=== PATIENT | male | born 1945 | race Caucasian/White ===

== ENCOUNTER 2020-09-16 15:13 | Inpatient (IN) ==
[2020-09-16] MEDS ORDERED: Isovue-370 500 ML BOTTLE IVP ONE (16:00)
[2020-09-16] MEDS ORDERED: methylPREDNISolone 125 MG/2 ML VIAL IVP ONE ×2 (16:01→18:18)
[2020-09-16] MEDS ORDERED: Famotidine 20 MG/2 ML VIAL IVP ONE ×2 (16:01→18:18)
[2020-09-16 18:27] LABS: Hemoglobin 8.1 g/dL (12.9-16.9); Mean Platelet Volume 9.1 fL (9.4-12.4); Red Cell Distribution Width 15.9 % (11.5-14.5)
[2020-09-16 18:28] LABS: Basophils # 0.1 K/mcL (0.0-0.2); Basophils % 1.1 %; Eosinophils # 0.1 K/mcL (0.0-0.6); Eosinophils % 0.9 %; Hematocrit 27.8 % (37.5-50.1); Immature Granulocytes % 0.3 % (0-4); Lymphocytes % 13.7 %; Mean Corpuscular HGB Conc 29.1 g/dL (31.6-35.5); Mean Corpuscular Hemoglobin 27.6 pg (28.0-33.3); Mean Corpuscular Volume 94.6 fL (83.0-100.0); Monocytes # 0.8 K/mcL (0.0-1.3); Monocytes % 10.8 %; Neutrophils # 5.6 K/mcL (1.6-8.9); Platelet Count 507 K/mcL (140-400); Red Blood Count 2.94 M/mcL (4.19-5.50); Segmented Neutrophils % 73.2 %; White Blood Count 7.6 K/mcL (4.3-11.1)
[2020-09-16 18:29] LABS: INR 1.8
[2020-09-16 18:31] LABS: Activated Partial Thrombo Time 35.3 Seconds (26.0-36.0)
[2020-09-16 18:46] LABS: BUN/Creatinine Ratio 28 (6-26); Blood Urea Nitrogen 15 mg/dL (8-23); Calcium 7.5 mg/dL (8.6-10.3); Carbon Dioxide 33 mEq/L (23-29); Chloride 101 mEq/L (98-107); Glucose 107 mg/dL (70-105); Osmolality,Calculated 289 (280-300); Sodium 139 mEq/L (136-145); Troponin I < 0.03 ng/mL (< 0.04); eGFR For African Americans > 60 (> 60); eGFR For Non-African Americans > 60 (> 60)
[2020-09-16 18:52] LABS: Platelet Estimate Increased (Normal)
[2020-09-16 18:53] LABS: Hypochromasia Present (Not Present)
[2020-09-16] MEDS ORDERED: Naloxone 0.4 MG/ML INJ IVP PRN (20:09)
[2020-09-16] MEDS ORDERED: Ondansetron 4 MG/2 ML VIAL IVP PRN (20:45)
[2020-09-16] MEDS ORDERED: Acetaminophen 325 MG TABLET PO PRN (20:45)
[2020-09-16] MEDS ORDERED: Sennosides/Docusate Sodium TABLET PO PRN (20:49)
[2020-09-16] MEDS ORDERED: Gabapentin 100 MG CAPSULE GTUBE SCH (21:00)
[2020-09-16] MEDS ORDERED: Apixaban 5 MG TABLET PO SCH (21:00)
[2020-09-16] MEDS ORDERED: Potassium Chloride Elixir 20 MEQ/15 ML UDC PO SCH (21:15)
[2020-09-16] MEDS: Furosemide 40 MG/4 ML VIAL IVP SCH (22:30)
[2020-09-17] MEDS ORDERED: *HR* Enoxaparin 100 MG/ML SYRINGE SQ SCH (02:00)
[2020-09-17 04:10] LABS: Basophils % 0.3 %; Hematocrit 28.5 % (37.5-50.1); Hemoglobin 8.3 g/dL (12.9-16.9); Immature Granulocytes % 0.3 % (0-4); Lymphocytes # 0.4 K/mcL (0.6-4.6); Mean Corpuscular HGB Conc 29.1 g/dL (31.6-35.5); Mean Corpuscular Hemoglobin 27.3 pg (28.0-33.3); Mean Corpuscular Volume 93.8 fL (83.0-100.0); Mean Platelet Volume 9.1 fL (9.4-12.4); Monocytes # 0.1 K/mcL (0.0-1.3); Monocytes % 0.8 %; Neutrophils # 5.9 K/mcL (1.6-8.9); Platelet Count 532 K/mcL (140-400); Red Blood Count 3.04 M/mcL (4.19-5.50); Segmented Neutrophils % 92.6 %; White Blood Count 6.4 K/mcL (4.3-11.1)
[2020-09-17 04:13] LABS: INR 1.8; Prothrombin Time 20.5 Seconds (9.4-12.1)
[2020-09-17 04:46] LABS: Folate 8.3 ng/mL (3.0-16.0)
[2020-09-17 04:49] LABS: % Iron Saturation 6 % (20-55); Alanine Aminotransferase 14 Units/L (7-52); Albumin 2.1 g/dL (3.5-5.7); Albumin/Globulin Ratio 0.8 (1.1-2.2); Alkaline Phosphatase 85 Units/L (34-104); Aspartate Amino Transferase 13 Units/L (13-39); BUN/Creatinine Ratio 27 (6-26); Bilirubin,Total 0.6 mg/dL (0.3-1.0); Blood Urea Nitrogen 17 mg/dL (8-23); Calcium 7.5 mg/dL (8.6-10.3); Carbon Dioxide 32 mEq/L (23-29); Chloride 100 mEq/L (98-107); Chol/HDL Ratio 2.8 (0-4.9); Cholesterol 121 mg/dL (< 200); Ferritin 50 ng/mL (20-250); Globulin 2.7 g/dL (2.4-3.5); Glucose 148 mg/dL (70-105); HDL Cholesterol 43 mg/dL (40-59); Iron 12 mcg/dL (65-175); LDL Cholesterol,Calculated 67 mg/dL (< 100); Magnesium 2.1 mg/dL (1.6-2.6); Osmolality,Calculated 288 (280-300); Potassium 4.6 mEq/L (3.5-5.1); Sodium 137 mEq/L (136-145); Total Protein 4.8 g/dL (6.4-8.9); Transferrin 132 mg/dL (203-362); Triglycerides 55 mg/dL (< 150); eGFR For African Americans > 60 (> 60); eGFR For Non-African Americans > 60 (> 60)
[2020-09-17] MEDS: *HR* Metoprolol 5 MG/5 ML VIAL IVP SCH ×3 (05:28→18:01)
[2020-09-17] MEDS ORDERED: Hydrocortisone Sodium Succ 100 MG/2 ML VIAL IVP SCH (08:00)
[2020-09-17] MEDS: Furosemide 40 MG/4 ML VIAL IVP SCH ×2 (08:23→19:53)
[2020-09-17] MEDS ORDERED: GABAPENTIN 250 MG PO SCH (09:00)
[2020-09-17] MEDS: Cholecalciferol (D-3) 1,000 UNIT (25MCG) TABLET PO SCH (11:27)
[2020-09-17] MEDS: predniSONE 5 MG TABLET PO SCH (11:27)
[2020-09-17] MEDS: ALPRAZolam 0.5 MG TABLET PO PRN (16:05)
[2020-09-17] MEDS: Hydrocortisone Sodium Succ 100 MG/2 ML VIAL IVP SCH ×2 (16:07→23:42)
[2020-09-17] MEDS ORDERED: Apixaban 5 MG TABLET PO SCH (21:00)
[2020-09-17] MEDS ORDERED: Gabapentin 100 MG CAPSULE PO SCH (21:00)
[2020-09-18] MEDS: *HR* Metoprolol 5 MG/5 ML VIAL IVP SCH ×2 (00:05→04:46)
[2020-09-18 06:52] LABS: Hematocrit 25.1 % (37.5-50.1); Hemoglobin 7.4 g/dL (12.9-16.9); Mean Corpuscular HGB Conc 29.5 g/dL (31.6-35.5); Mean Corpuscular Hemoglobin 26.9 pg (28.0-33.3); Mean Corpuscular Volume 91.3 fL (83.0-100.0); Mean Platelet Volume 8.9 fL (9.4-12.4); Platelet Count 451 K/mcL (140-400); Red Blood Count 2.75 M/mcL (4.19-5.50); Red Cell Distribution Width 16.3 % (11.5-14.5); White Blood Count 7.3 K/mcL (4.3-11.1)
[2020-09-18 07:01] LABS: INR 1.9; Prothrombin Time 21.1 Seconds (9.4-12.1)
[2020-09-18 07:08] LABS: Alanine Aminotransferase 12 Units/L (7-52); Albumin 1.9 g/dL (3.5-5.7); Albumin/Globulin Ratio 0.8 (1.1-2.2); Alkaline Phosphatase 68 Units/L (34-104); Aspartate Amino Transferase 12 Units/L (13-39); BUN/Creatinine Ratio 23 (6-26); Bilirubin,Direct 0.1 mg/dL (0.0-0.2); Bilirubin,Indirect 0.3 mg/dL (0.0-1.0); Bilirubin,Total 0.4 mg/dL (0.3-1.0); Blood Urea Nitrogen 23 mg/dL (8-23); Calcium 7.6 mg/dL (8.6-10.3); Carbon Dioxide 32 mEq/L (23-29); Chloride 100 mEq/L (98-107); Globulin 2.5 g/dL (2.4-3.5); Glucose 104 mg/dL (70-105); Magnesium 2.1 mg/dL (1.6-2.6); Osmolality,Calculated 288 (280-300); Sodium 137 mEq/L (136-145); Total Protein 4.4 g/dL (6.4-8.9); eGFR For African Americans > 60 (> 60); eGFR For Non-African Americans > 60 (> 60)
[2020-09-18] MEDS ORDERED: Albumin 25% 25gram/100mL 25 GM/100 ML IV.SOLN IVPB ONE (07:21)
[2020-09-18] MEDS: Cholecalciferol (D-3) 1,000 UNIT (25MCG) TABLET PO SCH (07:39)
[2020-09-18] MEDS: Furosemide 20 MG/2 ML VIAL IVP SCH ×2 (07:39→17:06)
[2020-09-18] MEDS: Hydrocortisone Sodium Succ 100 MG/2 ML VIAL IVP SCH ×2 (07:39→17:07)
[2020-09-18] MEDS: predniSONE 5 MG TABLET PO SCH (07:40)
[2020-09-18] MEDS: Gabapentin 100 MG CAPSULE PO SCH (07:41)
[2020-09-18 10:11] LABS: Amorphous Sediment,Urine Few per hpf (None-Few); Bilirubin,Urine Negative (Negative); Blood,Urine Moderate (Negative); Clarity,Urine Turbid (Clear); Color,Urine Yellow (Yellow); Glucose,Urine (UA) Normal (Normal); Hyaline Casts,Urine Few per lpf (None Seen); Ketones,Urine Negative (Negative); Leukocyte Esterase,Urine Large (Negative); Mucus,Urine Few per lpf (None-Few); Nitrite,Urine Negative (Negative); PH,Urine 5.5 pH Units (5.0-8.0); Protein,Urine 30 mg/dL (Neg-Trace); RBC,Urine 15-30 per hpf (0-3); Specific Gravity,Urine > 1.030 (1.010-1.025); Squamous Epithelial Cell,Urine Few per hpf (None-Few); Urobilinogen,Urine Normal (Normal); WBC,Urine TNTC per hpf (0-3)
[2020-09-18 12:44] LABS: Complement C3 69 mg/dL (87-200)
[2020-09-18 12:48] LABS: Protein/Creatinine Ratio,Urine 0.46 mg/mg (0.00-0.20)
[2020-09-18] MEDS: Albumin 25% 25gram/100mL 25 GM/100 ML IV.SOLN IVPB SCH ×2 (12:48→17:07)
[2020-09-18] MEDS: cefTRIAXone 1,000 MG in Water for inj. (sterile) 10 ML IVP SCH (12:48)
[2020-09-18 18:39] LABS: Hemoglobin 6.1 g/dL (12.9-16.9)
[2020-09-18] MEDS ORDERED: 0.9 % Sodium Chloride 250 ML ONE (21:40)
[2020-09-19] MEDS: Albumin 25% 25gram/100mL 25 GM/100 ML IV.SOLN IVPB SCH ×4 (00:19→23:41)
[2020-09-19] MEDS: Hydrocortisone Sodium Succ 100 MG/2 ML VIAL IVP SCH ×2 (00:20→08:48)
[2020-09-19] MEDS ORDERED: 0.9 % Sodium Chloride 250 ML ONE (01:51)
[2020-09-19 06:31] LABS: Hematocrit 27.3 % (37.5-50.1); Immature Granulocytes % 1.1 % (0-4); Lymphocytes # 0.5 K/mcL (0.6-4.6); Lymphocytes % 10.2 %; Mean Corpuscular HGB Conc 30.8 g/dL (31.6-35.5); Mean Corpuscular Hemoglobin 28.4 pg (28.0-33.3); Mean Corpuscular Volume 92.2 fL (83.0-100.0); Mean Platelet Volume 9.1 fL (9.4-12.4); Monocytes # 0.4 K/mcL (0.0-1.3); Monocytes % 8.4 %; Neutrophils # 3.6 K/mcL (1.6-8.9); Platelet Count 288 K/mcL (140-400); Red Blood Count 2.96 M/mcL (4.19-5.50); Red Cell Distribution Width 15.9 % (11.5-14.5); Segmented Neutrophils % 80.3 %; White Blood Count 4.5 K/mcL (4.3-11.1)
[2020-09-19 06:34] LABS: Hemoglobin 8.4 g/dL (12.9-16.9)
[2020-09-19 06:48] LABS: % Iron Saturation 81 % (20-55); BUN/Creatinine Ratio 26 (6-26); Blood Urea Nitrogen 25 mg/dL (8-23); Calcium 8.5 mg/dL (8.6-10.3); Carbon Dioxide 33 mEq/L (23-29); Chloride 101 mEq/L (98-107); Glucose 134 mg/dL (70-105); Iron 99 mcg/dL (65-175); Magnesium 2.3 mg/dL (1.6-2.6); Osmolality,Calculated 294 (280-300); Phosphorous 3.5 mg/dL (2.7-4.5); Potassium 3.7 mEq/L (3.5-5.1); Sodium 139 mEq/L (136-145); Transferrin 87 mg/dL (203-362); eGFR For African Americans > 60 (> 60); eGFR For Non-African Americans > 60 (> 60)
[2020-09-19] MEDS: cefTRIAXone 1,000 MG in Water for inj. (sterile) 10 ML IVP SCH (08:49)
[2020-09-19] MEDS: Gabapentin 100 MG CAPSULE PO SCH (08:50)
[2020-09-19] MEDS: Cholecalciferol (D-3) 1,000 UNIT (25MCG) TABLET PO SCH (08:50)
[2020-09-19] MEDS: predniSONE 5 MG TABLET PO SCH (08:54)
[2020-09-19] MEDS: predniSONE 20 MG TABLET PO SCH (09:04)
[2020-09-19 19:18] LABS: Hematocrit 30.7 % (37.5-50.1); Hemoglobin 9.7 g/dL (12.9-16.9)
[2020-09-19] MEDS: Furosemide 20 MG/2 ML VIAL IVP SCH (21:33)
[2020-09-19] MEDS: ALPRAZolam 0.5 MG TABLET PO PRN (22:31)
[2020-09-19] MEDS ORDERED: *HR* Metoprolol 5 MG/5 ML VIAL IVP ONE (22:57)
[2020-09-19] MEDS ORDERED: Furosemide 40 MG/4 ML VIAL IVP ONE (23:55)
[2020-09-19] MEDS ORDERED: Furosemide 40 MG/4 ML VIAL ONE (23:56)
[2020-09-20] MEDS ORDERED: Nitroglycerin 0.4 MG TAB.SUBL SL ONE (01:12)
[2020-09-20] MEDS ORDERED: Levalbuterol Neb 0.63 MG/3 ML IH ONE (01:13)
[2020-09-20] MEDS ORDERED: Nitroglycerin 0.4 MG TAB.SUBL SL PRN (01:14)
[2020-09-20 05:02] LABS: Basophils % 0.1 %; Eosinophils % 0.1 %; Hematocrit 30.2 % (37.5-50.1); Hemoglobin 9.2 g/dL (12.9-16.9); Immature Granulocytes % 0.9 % (0-4); Lymphocytes # 0.6 K/mcL (0.6-4.6); Lymphocytes % 4.5 %; Mean Corpuscular HGB Conc 30.5 g/dL (31.6-35.5); Mean Corpuscular Hemoglobin 27.9 pg (28.0-33.3); Mean Corpuscular Volume 91.5 fL (83.0-100.0); Mean Platelet Volume 9.1 fL (9.4-12.4); Monocytes # 0.8 K/mcL (0.0-1.3); Monocytes % 5.9 %; Neutrophils # 11.9 K/mcL (1.6-8.9); Nucleated Red Blood Cells 0.2 /100 WBC (0); Platelet Count 308 K/mcL (140-400); Red Cell Distribution Width 15.8 % (11.5-14.5); Segmented Neutrophils % 88.5 %; White Blood Count 13.4 K/mcL (4.3-11.1)
[2020-09-20 05:21] LABS: BUN/Creatinine Ratio 29 (6-26); Blood Urea Nitrogen 26 mg/dL (8-23); Calcium 8.8 mg/dL (8.6-10.3); Carbon Dioxide 34 mEq/L (23-29); Chloride 100 mEq/L (98-107); Glucose 118 mg/dL (70-105); Magnesium 2.2 mg/dL (1.6-2.6); Osmolality,Calculated 296 (280-300); Phosphorous 3.3 mg/dL (2.7-4.5); Potassium 3.4 mEq/L (3.5-5.1); Sodium 140 mEq/L (136-145); eGFR For African Americans > 60 (> 60); eGFR For Non-African Americans > 60 (> 60)
[2020-09-20] MEDS: predniSONE 20 MG TABLET PO SCH (07:46)
[2020-09-20] MEDS: Furosemide 20 MG/2 ML VIAL IVP SCH ×2 (07:46→17:33)
[2020-09-20] MEDS: cefTRIAXone 1,000 MG in Water for inj. (sterile) 10 ML IVP SCH (07:46)
[2020-09-20] MEDS: Gabapentin 100 MG CAPSULE PO SCH (07:47)
[2020-09-20] MEDS: Albumin 25% 25gram/100mL 25 GM/100 ML IV.SOLN IVPB SCH (07:47)
[2020-09-20] MEDS: Cholecalciferol (D-3) 1,000 UNIT (25MCG) TABLET PO SCH (07:47)
[2020-09-20 09:32] LABS: ABG Base Excess 9 mEq/L (-2 to 3); ABG HCO3 36 mEq/L (21-27); ABG Oxygen Saturation 93 % (95-98); ABG PCO2 65 mmHg (35-45); ABG PH 7.36 pH Units (7.32-7.45); ABG PO2 72 mmHg (85-104); ABG TCO2 38 mEq/L (20-26)
[2020-09-20] MEDS: Ipratropium/Albuterol Neb 3 ML IH SCH ×4 (09:56→20:21)
[2020-09-20] MEDS: MethylPREDNISolone 40 MG/ML VIAL IVP SCH ×2 (10:45→17:34)
[2020-09-20] MEDS ORDERED: Perflutren Lipid Microsphere 1.3 ML in 0.9 % Sodium Chloride 8.7 ML IVP PRN (13:29)
[2020-09-20] MEDS: Nitrofurantoin (BID) 100 MG CAPSULE PO SCH (17:34)
[2020-09-21] MEDS: Ipratropium/Albuterol Neb 3 ML IH SCH ×7 (00:21→23:29)
[2020-09-21] MEDS: MethylPREDNISolone 40 MG/ML VIAL IVP SCH (05:13)
[2020-09-21 07:17] LABS: Hemoglobin 8.8 g/dL (12.9-16.9); Mean Corpuscular HGB Conc 30.3 g/dL (31.6-35.5); Mean Corpuscular Hemoglobin 28.5 pg (28.0-33.3); Mean Corpuscular Volume 93.9 fL (83.0-100.0); Mean Platelet Volume 9.3 fL (9.4-12.4); Monocytes # 0.2 K/mcL (0.0-1.3); Platelet Count 240 K/mcL (140-400); Red Blood Count 3.09 M/mcL (4.19-5.50); Red Cell Distribution Width 15.9 % (11.5-14.5)
[2020-09-21 07:19] LABS: White Blood Count 5.7 K/mcL (4.3-11.1)
[2020-09-21 07:36] LABS: BUN/Creatinine Ratio 30 (6-26); Blood Urea Nitrogen 21 mg/dL (8-23); Calcium 8.8 mg/dL (8.6-10.3); Carbon Dioxide 35 mEq/L (23-29); Chloride 101 mEq/L (98-107); Glucose 170 mg/dL (70-105); Osmolality,Calculated 301 (280-300); Phosphorous 3.1 mg/dL (2.7-4.5); Potassium 3.3 mEq/L (3.5-5.1); Sodium 142 mEq/L (136-145); eGFR For African Americans > 60 (> 60); eGFR For Non-African Americans > 60 (> 60)
[2020-09-21] MEDS: Nitrofurantoin (BID) 100 MG CAPSULE PO SCH ×2 (08:17→16:06)
[2020-09-21] MEDS: Cholecalciferol (D-3) 1,000 UNIT (25MCG) TABLET PO SCH (08:17)
[2020-09-21] MEDS: Gabapentin 100 MG CAPSULE PO SCH (08:17)
[2020-09-21] MEDS: Furosemide 20 MG/2 ML VIAL IVP SCH ×2 (08:17→16:06)
[2020-09-21 08:27] LABS: Lymphocytes # 0.3 K/mcL (0.6-4.6); Neutrophils # 5.1 K/mcL (1.6-8.9); Platelet Estimate Normal (Normal)
[2020-09-21] MEDS ORDERED: MOM Conc 10 ML UD.LIQ PO ONE (09:16)
[2020-09-22] MEDS: ALPRAZolam 0.5 MG TABLET PO PRN (00:11)
[2020-09-22] MEDS: Ipratropium/Albuterol Neb 3 ML IH SCH ×4 (03:52→16:49)
[2020-09-22 04:00] LABS: Hematocrit 28.8 % (37.5-50.1); Hemoglobin 8.7 g/dL (12.9-16.9)
[2020-09-22 04:19] LABS: BUN/Creatinine Ratio 34 (6-26); Blood Urea Nitrogen 25 mg/dL (8-23); Calcium 8.8 mg/dL (8.6-10.3); Carbon Dioxide 35 mEq/L (23-29); Chloride 100 mEq/L (98-107); Glucose 166 mg/dL (70-105); Magnesium 2.3 mg/dL (1.6-2.6); Osmolality,Calculated 298 (280-300); Phosphorous 2.4 mg/dL (2.7-4.5); Potassium 3.8 mEq/L (3.5-5.1); Sodium 140 mEq/L (136-145); eGFR For African Americans > 60 (> 60); eGFR For Non-African Americans > 60 (> 60)
[2020-09-22] MEDS: Cholecalciferol (D-3) 1,000 UNIT (25MCG) TABLET PO SCH (08:53)
[2020-09-22] MEDS: Nitrofurantoin (BID) 100 MG CAPSULE PO SCH (08:53)
[2020-09-22] MEDS: Furosemide 20 MG/2 ML VIAL IVP SCH (08:54)
[2020-09-22] MEDS: Gabapentin 100 MG CAPSULE PO SCH (08:54)
[2020-09-22] MEDS ORDERED: predniSONE 10 MG TABLET PO SCH (09:00)
[2020-09-22 12:19] VITALS: BP 154/95
== END 2020-09-22 17:55 | disposition home health service (06) | DRG 915 ==
LOC: 2NNU 15:13 → EMEROOARM 15:13 → SUATTDRO 21:14 → OBSVTOIN 21:14 → 2NNU 21:52 → 2ANU 09-17 10:42
PROVIDERS: ADMIT Internal Medicine; ATTEND Internal Medicine